=== PATIENT | female | born 1985 | race Caucasian/White ===

== ENCOUNTER 2021-08-03 12:15 | Inpatient (IN) | payer OTHER ==
[~2021-08-03] VITALS: Ht 172.7 cm; Wt 68.0 kg
[2021-08-03 12:41] VITALS: BP 131/88
[2021-08-03 13:34] VITALS: BP 141/97
[2021-08-03 17:30] LABS: BASO # 0.1 10*3/uL (0.0-0.1); BASO % 0.6 % (0.0-1.0); EOS # 0.1 10*3/uL (0.0-0.4); HEMATOCRIT 36.5 % (37.0-47.0); LYMPH # 2.2 10*3/uL (1.3-4.4); LYMPH % 25.6 % (27.0-41.0); MEAN CELL VOLUME 105.5 fl (81.0-99.0); MEAN CORPUSCULAR HGB 34.7 pg (27.0-31.0); MEAN CORPUSCULAR HGB CONC 32.9 g/dl (33.0-37.0); MEAN PLATELET VOLUME 8.9 fl (9.6-12.3); MONO # 0.5 10*3/uL (0.1-1.0); MONO % 5.2 % (3.0-9.0); NEUT # 5.8 10*3/uL (2.3-7.9); NEUT % 67.3 % (47.0-73.0); PLATELET COUNT AUTOMATED 149 10*3/uL (130-400); RED BLOOD COUNT 3.46 10*6/uL (4.10-5.10); WHITE BLOOD COUNT 8.6 10*3/uL (4.8-10.8)
[2021-08-03 17:46] LABS: ALBUMIN 3.4 gm/dl (3.1-4.5); ALKALINE PHOSPHATASE 114 U/L (45-117); BUN 6 mg/dl (7-24); CHLORIDE 105 mmol/L (98-107); CREATININE 0.74 mg/dL (0.55-1.02); LIPASE 297 U/L (73-393); SGOT/AST 314 IU/L (3-35); SGPT/ALT 129 U/L (12-78); SODIUM 140 mmol/L (136-145)
[2021-08-03 17:48] LABS: TROPONIN I < 0.015 ng/ml (<0.045)
[2021-08-03 18:35] LABS: BILIRUBIN Negative (Negative); BLOOD Negative (Negative); CLARITY Cloudy (Clear); COLOR Yellow (Yellow); GLUCOSE Negative (Negative); KETONE Negative (Negative); LEUKO ESTERASE 2+ (Negative); NITRITE Negative (Negative)
[2021-08-03 18:38] LABS: URINE AMPHETAMINES < 1000 (1000ng/ml); URINE BARBITURATES < 200 (200ng/ml); URINE BENZODIAZEPINES < 200 (200ng/ml); URINE CANNABINOIDS (THC) < 50 (50ng/ml); URINE COCAINE < 300 (300ng/ml); URINE METHADONE < 300 (300ng/ml); URINE OPIATES < 300 (300ng/ml)
[2021-08-03 18:39] LABS: URINE PHENCYCLIDINE < 25 (25ng/ml)
[2021-08-03 18:43] LABS: BACTERIA 3+; RBC 0-2 rbc/hpf (0-2); WBC TNTC wbc/hpf (0-5)
[2021-08-03] MEDS ORDERED: LISINOPRIL20 MG PO (19:59)
[2021-08-03] MEDS ORDERED: Lopressor25 MG PO (20:00)
[2021-08-03] MEDS ORDERED: 'CLONIDINE0.1 MG PO (20:00)
[2021-08-03] MEDS ORDERED: PAROXETINE HCL20 MG PO (20:00)
[2021-08-03] MEDS ORDERED: HYDROXYZINE PAM25 M1 PO (20:01)
[2021-08-03] MEDS ORDERED: NALTREXONE HCL50 MG PO (20:01)
[2021-08-04 07:21] LABS: BASO % 0.6 % (0.0-1.0); EOS # 0.1 10*3/uL (0.0-0.4); EOS % 1.6 % (1.0-4.0); LYMPH # 1.3 10*3/uL (1.3-4.4); LYMPH % 25.1 % (27.0-41.0); MEAN CELL VOLUME 105.3 fl (81.0-99.0); MEAN CORPUSCULAR HGB 34.2 pg (27.0-31.0); MEAN CORPUSCULAR HGB CONC 32.5 g/dl (33.0-37.0); MEAN PLATELET VOLUME 9.2 fl (9.6-12.3); MONO # 0.4 10*3/uL (0.1-1.0); MONO % 8.2 % (3.0-9.0); NEUT # 3.3 10*3/uL (2.3-7.9); NEUT % 63.7 % (47.0-73.0); RED BLOOD COUNT 3.04 10*6/uL (4.10-5.10); RED CELL DISTRI WIDTH 13.6 % (0-14.5); WHITE BLOOD COUNT 5.1 10*3/uL (4.8-10.8)
[2021-08-04 07:25] LABS: PLATELET COUNT AUTOMATED 102 10*3/uL (130-400)
[2021-08-04 07:32] LABS: CHLORIDE 103 mmol/L (98-107); POTASSIUM 3.8 mmol/L (3.5-5.1); SODIUM 137 mmol/L (136-145)
[2021-08-04 07:42] LABS: ALBUMIN 2.8 gm/dl (3.1-4.5); ALKALINE PHOSPHATASE 104 U/L (45-117); BUN 6 mg/dl (7-24); CREATININE 0.51 mg/dL (0.55-1.02); FREE T4 0.85 ng/dl (0.76-1.46); SGOT/AST 204 IU/L (3-35); SGPT/ALT 100 U/L (12-78); TOTAL PROTEIN 6.7 gm/dL (6.4-8.2)
[2021-08-04 08:13] LABS: VITAMIN D, 25-HYDROXY 14.5 ng/mL (30-100)
[2021-08-04 12:00] VITALS: BP 141/97
[2021-08-04 16:00] VITALS: BP 144/83
[2021-08-05] VITALS: BP 140/90
[2021-08-05] MEDS ORDERED: ATENOLOL25 MG PO (04:12)
[2021-08-05] MEDS ORDERED: ACETAMINOPHEN500 M4 PO (04:13)
[2021-08-05] MEDS ORDERED: ZOFRAN4 MG PO (04:14)
[2021-08-05] MEDS ORDERED: [UNRECOGNIZED DRUG - OTHER] PO (04:15)
[2021-08-05 07:00] LABS: BASO % 0.4 % (0.0-1.0); EOS # 0.1 10*3/uL (0.0-0.4); EOS % 1.6 % (1.0-4.0); HEMATOCRIT 32.3 % (37.0-47.0); LYMPH # 1.2 10*3/uL (1.3-4.4); LYMPH % 23.8 % (27.0-41.0); MEAN CELL VOLUME 105.2 fl (81.0-99.0); MEAN CORPUSCULAR HGB 34.2 pg (27.0-31.0); MEAN CORPUSCULAR HGB CONC 32.5 g/dl (33.0-37.0); MEAN PLATELET VOLUME 9.7 fl (9.6-12.3); MONO # 0.4 10*3/uL (0.1-1.0); MONO % 7.5 % (3.0-9.0); NEUT # 3.2 10*3/uL (2.3-7.9); NEUT % 66.1 % (47.0-73.0); PLATELET COUNT AUTOMATED 103 10*3/uL (130-400); RED BLOOD COUNT 3.07 10*6/uL (4.10-5.10); RED CELL DISTRI WIDTH 13.1 % (0-14.5); WHITE BLOOD COUNT 4.9 10*3/uL (4.8-10.8)
[2021-08-05 07:20] LABS: ALKALINE PHOSPHATASE 102 U/L (45-117); BUN 3 mg/dl (7-24); CHLORIDE 106 mmol/L (98-107); CREATININE 0.67 mg/dL (0.55-1.02); POTASSIUM 3.9 mmol/L (3.5-5.1); SGOT/AST 159 IU/L (3-35); SGPT/ALT 91 U/L (12-78); SODIUM 137 mmol/L (136-145); TOTAL PROTEIN 7.1 gm/dL (6.4-8.2)
[2021-08-05 08:00] VITALS: BP 135/92
[2021-08-05 12:00] VITALS: BP 127/86
[2021-08-05 20:30] VITALS: BP 133/116
[2021-08-05 23:41] VITALS: BP 126/91
[2021-08-06 06:49] LABS: BASO % 0.6 % (0.0-1.0); EOS # 0.1 10*3/uL (0.0-0.4); EOS % 1.7 % (1.0-4.0); HEMATOCRIT 32.7 % (37.0-47.0); LYMPH # 1.4 10*3/uL (1.3-4.4); LYMPH % 27.1 % (27.0-41.0); MEAN CELL VOLUME 105.8 fl (81.0-99.0); MEAN CORPUSCULAR HGB 34.3 pg (27.0-31.0); MEAN CORPUSCULAR HGB CONC 32.4 g/dl (33.0-37.0); MEAN PLATELET VOLUME 9.5 fl (9.6-12.3); MONO # 0.4 10*3/uL (0.1-1.0); MONO % 7.9 % (3.0-9.0); NEUT # 3.3 10*3/uL (2.3-7.9); NEUT % 62.3 % (47.0-73.0); PLATELET COUNT AUTOMATED 116 10*3/uL (130-400); RED BLOOD COUNT 3.09 10*6/uL (4.10-5.10); RED CELL DISTRI WIDTH 13.1 % (0-14.5); WHITE BLOOD COUNT 5.3 10*3/uL (4.8-10.8)
[2021-08-06 07:23] LABS: ALBUMIN 3.2 gm/dl (3.1-4.5); BUN 3 mg/dl (7-24); CHLORIDE 107 mmol/L (98-107); SODIUM 138 mmol/L (136-145)
[2021-08-06 07:30] LABS: ALKALINE PHOSPHATASE 89 U/L (45-117); CREATININE 0.65 mg/dL (0.55-1.02); SGOT/AST 193 IU/L (3-35); SGPT/ALT 108 U/L (12-78); TOTAL PROTEIN 7.3 gm/dL (6.4-8.2)
[2021-08-06 08:00] VITALS: BP 140/86
[2021-08-06 12:15] VITALS: BP 116/74
[2021-08-06 20:00] VITALS: BP 112/75
[2021-08-07] VITALS: BP 115/71
[2021-08-07 06:01] LABS: ALBUMIN 2.8 gm/dl (3.1-4.5); ALKALINE PHOSPHATASE 101 U/L (45-117); BUN 3 mg/dl (7-24); CHLORIDE 106 mmol/L (98-107); CREATININE 0.76 mg/dL (0.55-1.02); POTASSIUM 4.1 mmol/L (3.5-5.1); SGOT/AST 251 IU/L (3-35); SGPT/ALT 141 U/L (12-78); SODIUM 137 mmol/L (136-145); TOTAL PROTEIN 6.5 gm/dL (6.4-8.2)
[2021-08-07 06:13] LABS: BASO % 0.4 % (0.0-1.0); EOS # 0.2 10*3/uL (0.0-0.4); EOS % 3.8 % (1.0-4.0); HEMATOCRIT 32.2 % (37.0-47.0); LYMPH # 1.4 10*3/uL (1.3-4.4); LYMPH % 29.8 % (27.0-41.0); MEAN CELL VOLUME 105.9 fl (81.0-99.0); MEAN CORPUSCULAR HGB 34.9 pg (27.0-31.0); MEAN CORPUSCULAR HGB CONC 32.9 g/dl (33.0-37.0); MEAN PLATELET VOLUME 9.7 fl (9.6-12.3); MONO # 0.5 10*3/uL (0.1-1.0); MONO % 9.4 % (3.0-9.0); NEUT # 2.7 10*3/uL (2.3-7.9); NEUT % 56.4 % (47.0-73.0); PLATELET COUNT AUTOMATED 133 10*3/uL (130-400); RED BLOOD COUNT 3.04 10*6/uL (4.10-5.10); RED CELL DISTRI WIDTH 13.1 % (0-14.5); WHITE BLOOD COUNT 4.8 10*3/uL (4.8-10.8)
[2021-08-07 08:00] VITALS: BP 115/70
[2021-08-07 12:00] VITALS: BP 116/70
[2021-08-07 16:00] VITALS: BP 128/70
[2021-08-07 20:00] VITALS: BP 110/69
[2021-08-08] VITALS: BP 110/69
[2021-08-08 05:39] LABS: ALBUMIN 2.8 gm/dl (3.1-4.5); ALKALINE PHOSPHATASE 97 U/L (45-117); BUN 5 mg/dl (7-24); CHLORIDE 107 mmol/L (98-107); CREATININE 0.75 mg/dL (0.55-1.02); POTASSIUM 3.7 mmol/L (3.5-5.1); SGOT/AST 181 IU/L (3-35); SGPT/ALT 150 U/L (12-78); SODIUM 139 mmol/L (136-145); TOTAL PROTEIN 6.6 gm/dL (6.4-8.2)
[2021-08-08 06:12] LABS: BASO % 0.5 % (0.0-1.0); EOS # 0.2 10*3/uL (0.0-0.4); EOS % 3.5 % (1.0-4.0); HEMATOCRIT 32.8 % (37.0-47.0); LYMPH # 1.8 10*3/uL (1.3-4.4); LYMPH % 29.5 % (27.0-41.0); MEAN CELL VOLUME 106.1 fl (81.0-99.0); MEAN CORPUSCULAR HGB 34.3 pg (27.0-31.0); MEAN CORPUSCULAR HGB CONC 32.3 g/dl (33.0-37.0); MEAN PLATELET VOLUME 9.6 fl (9.6-12.3); MONO # 0.7 10*3/uL (0.1-1.0); MONO % 12.2 % (3.0-9.0); NEUT # 3.3 10*3/uL (2.3-7.9); PLATELET COUNT AUTOMATED 168 10*3/uL (130-400); RED BLOOD COUNT 3.09 10*6/uL (4.10-5.10); RED CELL DISTRI WIDTH 13.1 % (0-14.5); WHITE BLOOD COUNT 6.1 10*3/uL (4.8-10.8)
[2021-08-08 08:00] VITALS: BP 162/93
[2021-08-08 10:25] VITALS: BP 103/64
== END 2021-08-08 17:47 | disposition home or self-care (01) | DRG 775 ==
LOC: ED 12:15 → EDHOLD 18:30
PROVIDERS: Family Medicine; Internal Medicine; ADMIT Student in an Organized Health Care Education/Training Program; ATTEND Student in an Organized Health Care Education/Training Program
DX: F10.230 Alcohol dependence with withdrawal, uncomplicated (principal); R82.71 Bacteriuria; E43 Unspecified severe protein-calorie malnutrition; N39.0 Urinary tract infection, site not specified; G25.81 Restless legs syndrome; D53.9 Nutritional anemia, unspecified; R74.01 Elevation of levels of liver transaminase levels; I10 Essential (primary) hypertension; F41.9 Anxiety disorder, unspecified; F17.210 Nicotine dependence, cigarettes, uncomplicated; E55.9 Vitamin D deficiency, unspecified; D69.6 Thrombocytopenia, unspecified; Z71.6 Tobacco abuse counseling; Z86.79 Personal history of other diseases of the circulatory system; Z79.899 Other long term (current) drug therapy; Z82.49 Family history of ischemic heart disease and other diseases of the circulatory system

== ENCOUNTER 2022-01-28 09:53 | Inpatient (IN) | payer OTHER ==
[~2022-01-28] VITALS: Ht 172.7 cm; Wt 77.1 kg
[~2022-01-28 09:53] MED LIST: 'CLONIDINE0.1 MG PO; ACETAMINOPHEN500 M4 PO; ATENOLOL25 MG PO; HYDROXYZINE PAM25 M1 PO; LISINOPRIL20 MG PO; Lopressor25 MG PO; NALTREXONE HCL50 MG PO; PAROXETINE HCL20 MG PO; ZOFRAN4 MG PO; [UNRECOGNIZED DRUG - OTHER] PO
[2022-01-28 10:01] VITALS: BP 146/91
[2022-01-28 10:19] LABS: BASO # 0.1 10*3/uL (0.0-0.1); BASO % 0.9 % (0.0-1.0); EOS # 0.1 10*3/uL (0.0-0.4); EOS % 2.1 % (1.0-4.0); HEMATOCRIT 39.9 % (37.0-47.0); LYMPH # 2.3 10*3/uL (1.3-4.4); LYMPH % 41.6 % (27.0-41.0); MEAN CORPUSCULAR HGB 30.3 pg (27.0-31.0); MEAN CORPUSCULAR HGB CONC 32.6 g/dl (33.0-37.0); MEAN PLATELET VOLUME 8.8 fl (9.6-12.3); MONO # 0.5 10*3/uL (0.1-1.0); MONO % 8.8 % (3.0-9.0); NEUT # 2.6 10*3/uL (2.3-7.9); NEUT % 46.4 % (47.0-73.0); PLATELET COUNT AUTOMATED 255 10*3/uL (130-400); RED BLOOD COUNT 4.29 10*6/uL (4.10-5.10); RED CELL DISTRI WIDTH 16.2 % (0-14.5); WHITE BLOOD COUNT 5.6 10*3/uL (4.8-10.8)
[2022-01-28 10:36] LABS: ALKALINE PHOSPHATASE 118 U/L (45-117); BUN 5 mg/dl (7-24); CHLORIDE 108 mmol/L (98-107); CREATININE 0.68 mg/dL (0.55-1.02); POTASSIUM 3.7 mmol/L (3.5-5.1); SGOT/AST 205 IU/L (3-35); SGPT/ALT 122 U/L (12-78); SODIUM 141 mmol/L (136-145); TOTAL PROTEIN 8.4 gm/dL (6.4-8.2)
[2022-01-28 10:38] LABS: B-hCG (QUALITATIVE) NEGATIVE (NEGATIVE)
[2022-01-28 10:43] LABS: BILIRUBIN Negative (Negative); BLOOD Negative (Negative); CLARITY Cloudy (Clear); COLOR Yellow (Yellow); GLUCOSE Negative (Negative); KETONE Negative (Negative); LEUKO ESTERASE Trace (Negative); NITRITE Positive (Negative); SPECIFIC GRAVITY <= 1.005 (1.001-1.030); UROBILINOGEN 0.2 E.U./dl (0.0-1.0)
[2022-01-28 10:53] LABS: BACTERIA 1+; EPITHELIAL CELLS TNTC
[2022-01-28 10:57] LABS: URINE BENZODIAZEPINES < 200 (200ng/ml); URINE CANNABINOIDS (THC) < 50 (50ng/ml); URINE COCAINE < 300 (300ng/ml); URINE METHADONE < 300 (300ng/ml); URINE OPIATES < 300 (300ng/ml)
[2022-01-28 10:59] LABS: URINE AMPHETAMINES < 1000 (1000ng/ml); URINE BARBITURATES < 200 (200ng/ml)
[2022-01-28 11:00] LABS: URINE PHENCYCLIDINE < 25 (25ng/ml)
[2022-01-28 11:10] VITALS: BP 151/95
[2022-01-28 11:30] VITALS: BP 146/91
[2022-01-28 20:11] VITALS: BP 135/79
[2022-01-28] MEDS ORDERED: NEURONTIN300 MG PO (23:54)
[2022-01-29 06:26] LABS: BASO # 0.1 10*3/uL (0.0-0.1); BASO % 0.8 % (0.0-1.0); EOS # 0.1 10*3/uL (0.0-0.4); EOS % 1.9 % (1.0-4.0); HEMATOCRIT 33.7 % (37.0-47.0); LYMPH # 1.9 10*3/uL (1.3-4.4); LYMPH % 29.6 % (27.0-41.0); MEAN CELL VOLUME 95.2 fl (81.0-99.0); MEAN CORPUSCULAR HGB 31.4 pg (27.0-31.0); MEAN CORPUSCULAR HGB CONC 32.9 g/dl (33.0-37.0); MEAN PLATELET VOLUME 9.5 fl (9.6-12.3); MONO # 0.4 10*3/uL (0.1-1.0); MONO % 5.5 % (3.0-9.0); NEUT # 3.9 10*3/uL (2.3-7.9); NEUT % 61.9 % (47.0-73.0); PLATELET COUNT AUTOMATED 194 10*3/uL (130-400); RED BLOOD COUNT 3.54 10*6/uL (4.10-5.10); RED CELL DISTRI WIDTH 16.1 % (0-14.5); WHITE BLOOD COUNT 6.3 10*3/uL (4.8-10.8)
[2022-01-29 06:56] LABS: BUN 6 mg/dl (7-24); CHLORIDE 104 mmol/L (98-107); CREATININE 0.89 mg/dL (0.55-1.02); POTASSIUM 3.5 mmol/L (3.5-5.1); SGPT/ALT 105 U/L (12-78); SODIUM 138 mmol/L (136-145)
[2022-01-29 06:58] LABS: ALKALINE PHOSPHATASE 92 U/L (45-117); SGOT/AST 176 IU/L (3-35)
[2022-01-29 08:00] VITALS: BP 142/96
[2022-01-29 12:00] VITALS: BP 138/90
[2022-01-29 16:42] VITALS: BP 141/87
[2022-01-29 20:00] VITALS: BP 139/81
[2022-01-30] VITALS: BP 133/93
[2022-01-30 06:15] LABS: BASO % 0.7 % (0.0-1.0); EOS # 0.1 10*3/uL (0.0-0.4); EOS % 1.8 % (1.0-4.0); HEMATOCRIT 32.3 % (37.0-47.0); LYMPH # 1.4 10*3/uL (1.3-4.4); LYMPH % 25.7 % (27.0-41.0); MEAN CORPUSCULAR HGB 31.2 pg (27.0-31.0); MEAN CORPUSCULAR HGB CONC 32.8 g/dl (33.0-37.0); MEAN PLATELET VOLUME 9.7 fl (9.6-12.3); MONO # 0.4 10*3/uL (0.1-1.0); MONO % 7.9 % (3.0-9.0); NEUT # 3.4 10*3/uL (2.3-7.9); NEUT % 63.5 % (47.0-73.0); PLATELET COUNT AUTOMATED 201 10*3/uL (130-400); RED CELL DISTRI WIDTH 15.8 % (0-14.5); WHITE BLOOD COUNT 5.4 10*3/uL (4.8-10.8)
[2022-01-30 06:23] LABS: INTERNATIONAL NORM RATIO 0.9 (2.0-3.5)
[2022-01-30 06:26] LABS: ALKALINE PHOSPHATASE 89 U/L (45-117); BUN 7 mg/dl (7-24); CHLORIDE 106 mmol/L (98-107); CREATININE 0.82 mg/dL (0.55-1.02); POTASSIUM 3.7 mmol/L (3.5-5.1); SGOT/AST 103 IU/L (3-35); SGPT/ALT 85 U/L (12-78); SODIUM 138 mmol/L (136-145)
[2022-01-30 08:00] VITALS: BP 133/89
[2022-01-30 12:00] VITALS: BP 145/95
[2022-01-30 16:00] VITALS: BP 147/87
[2022-01-30 20:00] VITALS: BP 114/79
[2022-01-30 23:47] VITALS: BP 117/80
[2022-01-31 07:32] LABS: BASO % 0.6 % (0.0-1.0); EOS # 0.1 10*3/uL (0.0-0.4); EOS % 1.7 % (1.0-4.0); HEMATOCRIT 34.9 % (37.0-47.0); LYMPH # 1.1 10*3/uL (1.3-4.4); LYMPH % 17.1 % (27.0-41.0); MEAN CELL VOLUME 96.4 fl (81.0-99.0); MEAN CORPUSCULAR HGB 31.5 pg (27.0-31.0); MEAN CORPUSCULAR HGB CONC 32.7 g/dl (33.0-37.0); MEAN PLATELET VOLUME 9.4 fl (9.6-12.3); MONO # 0.4 10*3/uL (0.1-1.0); NEUT # 4.8 10*3/uL (2.3-7.9); NEUT % 74.3 % (47.0-73.0); PLATELET COUNT AUTOMATED 174 10*3/uL (130-400); RED BLOOD COUNT 3.62 10*6/uL (4.10-5.10); RED CELL DISTRI WIDTH 15.8 % (0-14.5); WHITE BLOOD COUNT 6.5 10*3/uL (4.8-10.8)
[2022-01-31 07:45] LABS: BUN 9 mg/dl (7-24); CHLORIDE 103 mmol/L (98-107); CREATININE 0.93 mg/dL (0.55-1.02); POTASSIUM 4.4 mmol/L (3.5-5.1); SODIUM 136 mmol/L (136-145)
[2022-01-31 08:00] VITALS: BP 133/98
[2022-01-31 12:00] VITALS: BP 122/86
[2022-01-31 16:00] VITALS: BP 133/87
[2022-01-31 20:00] VITALS: BP 124/83
[2022-02-01] VITALS: BP 128/88
[2022-02-01 08:00] VITALS: BP 129/89
[2022-02-01 12:00] VITALS: BP 121/78
[2022-02-01 16:00] VITALS: BP 113/67
[2022-02-01 20:00] VITALS: BP 119/73
[2022-02-02] VITALS: BP 107/63
[2022-02-02 08:00] VITALS: BP 118/72
[2022-02-02] MEDS ORDERED: VITAMIN B-1100 M1 PO (11:09)
[2022-02-02] MEDS ORDERED: NATURE'S BLEND F1 MG PO (11:09)
[2022-02-02] MEDS ORDERED: NITROFURANTOIN100 M9 PO (11:09)
[2022-02-02 12:00] VITALS: BP 127/72
[2022-02-02 16:00] VITALS: BP 127/85
== END 2022-02-02 20:50 | disposition home or self-care (01) | DRG 775 ==
LOC: ED 09:53 → 4E 22:06 → EDHOLD 22:06 → 4E 22:54
PROVIDERS: Internal Medicine; Student in an Organized Health Care Education/Training Program; ADMIT Internal Medicine; ATTEND Internal Medicine
DX: F10.230 Alcohol dependence with withdrawal, uncomplicated (principal); N39.0 Urinary tract infection, site not specified; F33.1 Major depressive disorder, recurrent, moderate; R74.01 Elevation of levels of liver transaminase levels; G25.81 Restless legs syndrome; F17.210 Nicotine dependence, cigarettes, uncomplicated; E55.9 Vitamin D deficiency, unspecified; E87.8 Other disorders of electrolyte and fluid balance, not elsewhere classified; I10 Essential (primary) hypertension; F41.9 Anxiety disorder, unspecified; B96.20 Unspecified Escherichia coli [E. coli] as the cause of diseases classified elsewhere; G47.00 Insomnia, unspecified; Z82.49 Family history of ischemic heart disease and other diseases of the circulatory system

== ENCOUNTER 2022-12-20 12:12 | Inpatient (IN) | payer MEDICAID ==
[~2022-12-20] VITALS: Ht 175 cm; Wt 64.6 kg
[~2022-12-20 12:12] MED LIST changes: +NATURE'S BLEND F1 MG PO; +NEURONTIN300 MG PO; +NITROFURANTOIN100 M9 PO; +VITAMIN B-1100 M1 PO
[2022-12-20 12:18] VITALS: BP 148/99
[2022-12-20 13:22] LABS: BASO % 0.5 % (0.0-1.0); EOS % 0.3 % (1.0-4.0); HEMATOCRIT 36.5 % (37.0-47.0); LYMPH # 1.7 10*3/uL (1.3-4.4); LYMPH % 29.3 % (27.0-41.0); MEAN CELL VOLUME 102.5 fl (81.0-99.0); MEAN CORPUSCULAR HGB 34.6 pg (27.0-31.0); MEAN CORPUSCULAR HGB CONC 33.7 g/dl (33.0-37.0); MEAN PLATELET VOLUME 8.8 fl (9.6-12.3); MONO # 0.4 10*3/uL (0.1-1.0); MONO % 6.9 % (3.0-9.0); NEUT # 3.7 10*3/uL (2.3-7.9); NEUT % 62.7 % (47.0-73.0); PLATELET COUNT AUTOMATED 223 10*3/uL (130-400); RED BLOOD COUNT 3.56 10*6/uL (4.10-5.10); RED CELL DISTRI WIDTH 15.7 % (0-14.5); WHITE BLOOD COUNT 5.9 10*3/uL (4.8-10.8)
[2022-12-20 13:45] LABS: ALKALINE PHOSPHATASE 102 U/L (46-116); BUN 6 mg/dl (9-23); CHLORIDE 95 mmol/L (98-107); POTASSIUM 2.7 mmol/L (3.4-5.1); SGPT/ALT 164 U/L (10-49); TOTAL PROTEIN 8.5 gm/dL (6.0-8.0)
[2022-12-20 14:02] LABS: ETHYL ALCOHOL 378.6 mg/dl (<3)
[2022-12-20 14:02] LABS: BILIRUBIN Negative (Negative); BLOOD Negative (Negative); CLARITY Cloudy (Clear); COLOR Yellow (Yellow); GLUCOSE Negative (Negative); KETONE Trace (Negative); LEUKO ESTERASE Negative (Negative); NITRITE Negative (Negative); PH 6.5 (4.5-8.0); SPECIFIC GRAVITY <= 1.005 (1.001-1.030)
[2022-12-20 14:09] LABS: URINE AMPHETAMINES Negative (1000ng/ml); URINE BARBITURATES Negative (200ng/ml); URINE BENZODIAZEPINES Negative (200ng/ml); URINE CANNABINOIDS (THC) Negative (50ng/ml); URINE COCAINE Negative (300ng/ml); URINE METHADONE Negative (300ng/ml); URINE OPIATES Negative (300ng/ml); URINE PHENCYCLIDINE Negative (25ng/ml)
[2022-12-20 14:14] LABS: BACTERIA 1+; EPITHELIAL CELLS 16-20; FINE GRANULAR CAST 0-2; MUCOUS 1+
[2022-12-20 16:00] VITALS: BP 136/92
[2022-12-20 18:00] VITALS: BP 136/92
[2022-12-20 20:00] VITALS: BP 120/84
[2022-12-21] VITALS: BP 126/78
[2022-12-21 02:43] VITALS: BP 110/64
[2022-12-21 04:36] LABS: BUN 6 mg/dl (9-23); CHLORIDE 97 mmol/L (98-107); POTASSIUM 3.3 mmol/L (3.4-5.1)
[2022-12-21 08:00] VITALS: BP 121/76
[2022-12-21 12:00] VITALS: BP 120/58
[2022-12-21 16:00] VITALS: BP 113/70
[2022-12-21 20:00] VITALS: BP 112/69
[2022-12-22] VITALS: BP 104/64
[2022-12-22 08:00] VITALS: BP 127/82
[2022-12-22 12:00] VITALS: BP 112/66
[2022-12-22 16:00] VITALS: BP 113/69
[2022-12-22 20:00] VITALS: BP 109/68
[2022-12-23] VITALS: BP 97/58
[2022-12-23 08:00] VITALS: BP 110/68
[2022-12-23] MEDS ORDERED: ATARAX,VISTARIL50 MG PO (08:51)
[2022-12-23] MEDS ORDERED: ONDANSETRON HYDR4 M1 PO (08:51)
[2022-12-23] MEDS ORDERED: METHOCARBAMOL750 M1 PO (08:51)
[2022-12-23] MEDS ORDERED: NATURE'S BLEND F1 MG PO (08:51)
[2022-12-23] MEDS ORDERED: ROPINIROLE HYD0.5 MG PO (12:21)
== END 2022-12-23 13:30 | disposition home or self-care (01) | DRG 775 ==
LOC: ED 12:12 → EDHOLD 14:33 → 5E 14:33 → EDHOLD 16:32 → 5E 16:55
PROVIDERS: Emergency Medicine; Registered Nurse; ADMIT Emergency Medicine; ATTEND Emergency Medicine
DX: F10.139 Alcohol abuse with withdrawal, unspecified (principal); Y90.9 Presence of alcohol in blood, level not specified; F41.9 Anxiety disorder, unspecified; F17.210 Nicotine dependence, cigarettes, uncomplicated; F32.A Depression, unspecified; Z82.49 Family history of ischemic heart disease and other diseases of the circulatory system; Z88.2 Allergy status to sulfonamides; Z88.8 Allergy status to other drugs, medicaments and biological substances; Z79.1 Long term (current) use of non-steroidal anti-inflammatories (NSAID); Z79.899 Other long term (current) drug therapy